=== PATIENT | male | born 1990 | race Two or more races ===

== ENCOUNTER 2021-09-30 13:26 | Emergency (ER) | payer SELFPAY ==
[~2021-09-30] VITALS: Ht 188 cm; Wt 97.5 kg
[2021-09-30 15:52] VITALS: BP 126/86
== END 2021-09-30 16:06 | disposition home or self-care (01) ==
LOC: ER 13:26
DX: J20.9 Acute bronchitis, unspecified (principal); Z20.822 Contact with and (suspected) exposure to COVID-19
CPT/HCPCS: 36415; 87426